=== PATIENT | female | born 1970 | race Two or more races ===

== ENCOUNTER 2017-06-04 15:47 | Emergency (ER) | payer OTHER ==
[~2017-06-04] VITALS: Ht 170.2 cm; Wt 70.3 kg
[2017-06-04] MEDS ORDERED: NKM (16:02)
[2017-06-04] MEDS ORDERED: HYDROcodone/Acetamin 7.5/325 tab ORAL ONE (16:15)
--- NOTE | 2017-06-04 16:57 | Emergency Room Report ---
History of Present Illness General Chief Complaint: Lower Extremity Injury Source: Patient Present Illness HPI 47-year-old female presents to the emergency department complaining of 8 out of 10 in severity right knee pain 2 days. 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 She reports swelling, tenderness to the medial and anterior aspect of the knee in addition to pain exacerbated upon some walking. Patient denies previous injury to this extremity she states she is otherwise normally very active and participates in sports regularly. Patient denies trauma or fall. She denies obvious deformity or inability to move her joint. Patient denies erythema, increased temperature palpation, fevers, chills. Denies numbness tingling or loss of sensation or gross motor movements of the extremities, incontinence of bowel or bladder. Denies CP, Palpitations, LOC, AMS, dizziness, Changes in Vision, Sensation, paresthesias, or a sudden severe headache. Allergies: Coded Allergies: No Known Allergies (Unverified , 06/04/17) Patient History Past Medical History: see triage record Past Surgical History: none Pertinent Family History: none Last Menstrual Period: May Reviewed Nursing Documentation: PMH: Agreed; PSxH: Agreed Nursing Documentation-PMH Past Medical History: No Stated History Review of Systems All Other Systems: negative except mentioned in HPI Physical Exam Vital Signs Date Time Temp Pulse Resp B/P (MAP) Pulse Ox O2 Delivery O2 Flow Rate FiO2 06/04/17 15:54 98.2 71 16 137/83 96 Room Air 98.2 Sp02 EP Interpretation: reviewed, normal General Appearance: no apparent distress, alert, GCS 15, non-toxic Head: normocephalic, atraumatic ENT: hearing grossly normal, normal voice Neck: full range of motion Respiratory: lungs clear, normal breath sounds, speaking full sentences Cardiovascular #1: regular rate, rhythm, normal capillary refill Musculoskeletal: back normal, gait/station normal - compensatory gait, normal range of motion, no calf tenderness, swelling - right knee, tender - TTP to the medial and anterior right knee, no increased laxity on exam, negative anterior and posterior drawer sign. Neurologic: alert, oriented x3, responsive, motor strength/tone normal, sensory intact, speech normal, grossly normal Psychiatric: judgement/insight normal Skin: normal color, no rash, warm/dry, well hydrated Medical Decision Making PA Attestation Dr. Castro is my supervising Physician whom patient management has been discussed with. Diagnostic Impression: Primary Impression: Right knee sprain Qualified Codes: S83.91XA - Sprain of unspecified site of right knee, initial encounter Additional Impression: Knee effusion, right ER Course 47-year-old female presents to the emergency department complaining of 8 out of 10 in severity right knee pain 2 days. 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 She reports swelling, tenderness to the medial and anterior aspect of the knee in addition to pain exacerbated upon some walking. Patient denies previous injury to this extremity she states she is otherwise normally very active and participates in sports regularly. Patient denies trauma or fall. She denies obvious deformity or inability to move her joint. Patient denies erythema, increased temperature palpation, fevers, chills. Denies numbness tingling or loss of sensation or gross motor movements of the extremities, incontinence of bowel or bladder. Denies CP, Palpitations, LOC, AMS, dizziness, Changes in Vision, Sensation, paresthesias, or a sudden severe headache. Ddx considered but are not limited to Fracture, dislocation, contusion, Sprain/ Strain/Spasm, Effusion. Vital signs: are WNL, pt. is afebrile H&PE are most consistent with musculoskeletal injury will perform imaging to r/ o fractures/dislocations. ORDERS: - X-ray Right Knee - negative for fx, Dislocation, or significant soft tissue injury, per preliminary read in ED, and signed by PAUL Campbell, my supervising physician has reviewed, and agrees with my interpretation. ED INTERVENTIONS: -Edgerton PO - Behzad wrap applied by fire sprinkler service technician. Pt. remains neurovascularly intact. -Patient is provided with crutches and instructed on their use DISCHARGE: At this time pt. is stable for d/c to home. Will provide printed patient care instructions, and any necessary prescriptions. Care plan and follow up instructions have been discussed with the patient prior to discharge. Other X-Ray Diagnostic Results Other X-Ray Diagnostic Results : X-Ray ordered: Right Knee # of Views/Limited Vs Complete: 3 View Indication: Pain EP Interpretation: Yes PA Xray: Interpretation reviewed, by supervising MD, and agrees with findings. Interpretation: no dislocation, no soft tissue swelling, no fractures Impression: No acute disease Electronically Signed by: Ana Campbell PA-C Last Vital Signs Date Time Temp Pulse Resp B/P (MAP) Pulse Ox O2 Delivery O2 Flow Rate FiO2 06/04/17 16:41 98.2 06/04/17 15:54 71 16 137/83 96 Room Air Disposition: HOME, SELF-CARE Condition: Stable Scripts Ibuprofen* (MOTRIN*) 600 Mg Tablet 600 MG ORAL THREE TIMES A DAY, #30 TAB 0 Refills Prov: Ana Campbell 06/04/17 Departure Forms: Return to Work Return to Work Date: Jun 08, 2017 Work Restrictions: No Heavy Lifting, No Prolonged Standing Other Restrictions: light duty x 1 week. Return to Full Activity: Jun 15, 2017 Patient Instructions: Knee Sprain Additional Instructions: Take medications as directed. Follow up with an CASEWORK SPECIALIST in 3-5 days, even if your symptoms have resolved. --Please review list of primary care clinics, if you do not already have a primary care provider who can give you an Orthopedic Referral. Return sooner to ED if new symptoms occur, or current symptoms become worse. Do not drink alcohol, drive, or operate heavy machinery while taking [place] as this may cause drowsiness. - Please note that this Emergency Department Report was dictated using [employer] technology software, occasionally this can lead to erroneous entry secondary to interpretation by the dictation equipment. Ana Campbell Jun 04, 2017 16:57
[2017-06-04] MEDS ORDERED: IBUPROFEN600 MG ORAL (16:58)
[2017-06-04 17:35] VITALS: BP 144/91
--- NOTE | 2017-06-05 10:00 | Diagnostic Imaging Report ---
Indication: Pain Knee pain/trauma 3 views of the right knee were obtained. Findings: No acute fracture, malalignment, or joint effusion are identified. Joint space is relatively well-maintained. Impression: Negative for acute findings.
== END 2017-06-04 17:35 | disposition home or self-care (01) ==
LOC: EMR 16:30
DX: S83.91XA Sprain of unspecified site of right knee, initial encounter (principal); X58.XXXA Exposure to other specified factors, initial encounter; Y99.0 Civilian activity done for income or pay
CPT/HCPCS: 99283